=== PATIENT | female | born 1965 | race Caucasian/White ===

== ENCOUNTER → 2016-06-19 | Outpatient (CLI) | payer MEDICAID ==
--- NOTE | 2016-06-19 20:52 | CR ---
EXAM DATE: 06/19/16 PATIENT'S AGE: 51 Patient: KYLE SLADE Facility: [place], [place] Site . Site : 1965 Study: XRay Spine Lumbar [id number] 1:02:59 PM Ordering Physician: Andrea Samuel Final Report: Indication: Low back pain. Technique: Three views of the lumbar spine. Comparison: None. Findings: Six lumbar-type vertebral bodies with the lowest segment presumably representing a lumbarized S1 segment. Moderate to advanced L3-4 disc degeneration and 3 mm L3 retrolisthesis. Moderate L2-3 and L5-S1 disk degeneration also. Slight dextroscoliosis. Sacroiliac joints grossly negative. Impression: 1. Lumbarized S1 segment. 2. Degenerative changes, as above, including a 3 mm L3 retrolisthesis. 3. Slight scoliosis. Dictated by Reji Miramontes MD @ Jun 19 2016 2:46PM (Electronic Signature) Report Signed by Proxy. OSMAR
--- NOTE | 2016-06-19 20:53 | CR ---
EXAM DATE: 06/19/16 PATIENT'S AGE: 51 Patient: KYLE SLADE Facility: [place], [place] Site . Site : 1965 Study: XRay Extremity [id number]/[id number] 1:05:01 PM Ordering Physician: Andrea Samuel Final Report: HISTORY: Right hip pain. Technique: AP pelvis and lateral view right hip. Comparison: No prior. Findings: Degenerative arthrosis of the right hip with severe hip joint space narrowing. There is likely subchondral cystic change involving the femoral head greater than acetabulum. Degenerative subchondral sclerosis is present. On the left, there is also degenerative arthrosis of the hip with moderate to severe hip joint space narrowing superolaterally. Mild pubic symphyseal degenerative changes. There is a transitional lumbosacral vertebral body which appears partially sacralized on the right. There is no acute fracture. Pelvic calcifications are likely phleboliths. Impression: 1. No acute fracture. 2. Degenerative changes of the right greater than left hips. Dictated by Ty Jimenez MD @ Jun 19 2016 2:59PM (Electronic Signature) Report Signed by Proxy. OSMAR
[2016-06-25 14:04] LABS: HPV 16 Not Detected (NOTDET); HPV 18 Not Detected (NOTDET)
== END ==
LOC: MW.CHFP 09:57
PROVIDERS: ATTEND Family Medicine
DX: M54.5 Low back pain (principal); M25.551 Pain in right hip; M41.9 Scoliosis, unspecified
CPT/HCPCS: 72100; 72100-26; 73502-26-RT; 73502-RT; 87624; G0145

== ENCOUNTER → 2016-06-25 | Outpatient (CLI) | payer MEDICAID ==
--- NOTE | 2016-06-25 16:48 | MY ---
EXAMINATION: Bilateral digital mammography utilizing CAD. HISTORY: Screening exam. Comparison is made to previous studies dated 10/08/2010. FINDINGS: Bilateral scattered fibroglandular densities. No suspicious calcifications, masses or architectural distortions. No pathologic appearing lymph nodes, no abnormal skin thickening or nipple inversion. CAD highlighted regions appear normal at this time. IMPRESSION: BI-RADS category I - negative mammogram. Continued screening according to ACR-ACS guidelines keyonna quijano. THE FALSE-NEGATIVE RATE OF MAMMOGRAM IS APPROXIMATELY 10%. MANAGEMENT OF A PALPABLE ABNORMALITY MUST BE BASED UPON CLINICAL GROUNDS. SENSITIVITY FOR DETECTION OF ABNORMALITIES IN DENSE BREASTS IS LOW. NOTE: A letter will be sent to the patient regarding findings. [facility] [place] [phone] - FAX [phone]
== END ==
LOC: MW.MAM 11:02
PROVIDERS: ATTEND Family Medicine
DX: Z00.00 Encounter for general adult medical examination without abnormal findings (principal)
CPT/HCPCS: G0202; G0202-26

== ENCOUNTER → 2016-06-29 | Outpatient (CLI) | payer MEDICAID ==
--- NOTE | 2016-06-30 08:50 | MR ---
EXAMINATION: MRI lumbar spine HISTORY: Right leg weakness COMPARISON: Radiographs dated 06/19/2016 TECHNIQUE: Multiplanar and multisequence images obtained of the lumbar spine without contrast. FINDINGS: The lumbar spinal alignment is normal. The vertebral body heights and disc spaces appear w ell-maintained. Mild endplate signal changes are noted without suspicious bone marrow signal changes . The SI joints are symmetric. The distal spinal cord appears normal and the conus terminates at L1. The visualized retroperitoneal structures appear unremarkable. T12-L1: Unremarkable. L1-L2: There is a moderate diffuse disc bulge with mild facet and ligamentum flavum hypertrophy resu lting in mild spinal canal stenosis. There is mild bilateral neural foraminal stenosis. L2-L3: Moderate to large diffuse disc bulge with mild facet and ligamentum flavum hypertrophy result ing in moderate spinal canal stenosis. Moderate to severe right and severe left neural foraminal bashir nosis. L3-L4: Small diffuse disc bulge with facet and ligamentum flavum hypertrophy resulting in mild spina l canal stenosis. Mild bilateral neural foraminal stenosis. L4-L5: Small diffuse disc bulge asymmetric to the right facet hypertrophy resulting in qazo-gl-elhml ate spinal canal stenosis. Moderate right and mild left neural foraminal stenosis. L5-S1: Grossly unremarkable. IMPRESSION: 1. Multilevel degenerative disc disease noted within the lumbar spine most prominent at L2-L3 with i ndividual details above.
--- NOTE | 2016-07-01 08:30 | MR ---
EXAMINATION: MRI of the right hip HISTORY: Other signs and symptoms COMPARISON: Radiographs dated 06/19/2016 TECHNIQUE: Multiplanar and multisequence images obtained of the pelvis and right hip without contras t. FINDINGS: Severe joint space narrowing is noted within the right hip with a moderate joint effusion. There is mild superior and lateral subluxation within the joint space. There is moderate edema with in the right femoral head and within the right acetabulum. The transverse ligament appears intact. J oint spaces within the left hip are grossly preserved. The SI joints are symmetric. The visualized i ntrapelvic components appear normal. The muscular signal appears normal. No suspicious bone marrow s ignal. IMPRESSION: 1. Advanced osteophytic changes and joint space narrowing within the right hip with an underlying barby int effusion.
== END ==
LOC: MW.MRI 10:44
PROVIDERS: ATTEND Family Medicine
DX: R29.898 Other symptoms and signs involving the musculoskeletal system (principal); M25.751 Osteophyte, right hip; M25.451 Effusion, right hip; M51.26 Other intervertebral disc displacement, lumbar region; M48.06 Spinal stenosis, lumbar region
CPT/HCPCS: 72148; 72148-26; 73721-26-RT; 73721-RT

== ENCOUNTER 2016-07-30 10:58 | Day surgery (SDC) | payer MEDICAID ==
[~2016-07-30 10:58] MED LIST: Lactated Ringers 1,000 ML IV SCH; Sodium Chloride 0.9% 10 ML Syringe FLUSH PRN; Sodium Chloride 0.9% 2.5 ML Syringe FLUSH PRN
[2016-07-30] MEDS ORDERED: fentaNYL 100 MCG/2 ML SDV ONE (11:20)
[2016-07-30] MEDS ORDERED: Midazolam 1 MG/ML 2 ML SDV ONE (11:20)
[2016-07-30] MEDS ORDERED: Propofol 200 MG/20 ML SDV ONE ×2 (11:20→13:12)
--- NOTE | 2016-07-30 11:25 | PCM.PREANE ---
Preanesthetic Assessment - Anesthesia/Transfusion/Family Hx Anesthesia History: Prior Anesthesia Without Reaction Family History of Anesthesia Reaction: No Transfusion History: No Prior Transfusion(s) - Review of Systems General: No Symptoms Pulmonary: No Symptoms Cardiovascular: No Symptoms Gastrointestinal: No symptoms Neurological: No Symptoms Other: Reports: None - Physical Assessment NPO Status Date: 07/29/16 NPO Status Time: 23:00 O2 Sat by Pulse Oximetry: 98 Respiratory Rate: 16 Vital Signs: Last Vital Signs Temp 36.3 C 07/30/16 11:12 Pulse 83 07/30/16 11:12 Resp 16 07/30/16 11:12 BP 111/84 07/30/16 11:12 Pulse Ox 98 07/30/16 11:12 Height: 1.75 m Weight: 86.183 kg ASA Class: 2 Mental Status: Alert & Oriented x3 Airway Class: Mallampati = 2 Dentition: Reports: Normal Dentition Lungs: Clear to auscultation, Normal respiratory effort Cardiovascular: Regular Rate, Regular Rhythm - Allergies Allergies/Adverse Reactions: Allergies Allergy/AdvReac Type Severity Reaction Status Date / Time No Known Allergies Allergy Verified 07/28/16 10:52 - Anesthesia Plan Pre-Op Medication Ordered: None - Acknowledgements Anesthesia Type Planned: MAC Pt an Appropriate Candidate for the Planned Anesthesia: Yes Alternatives and Risks of Anesthesia Discussed w Pt/Guardian: Yes Pt/Guardian Understands and Agrees with Anesthesia Plan: Yes Additional Comments: scoliosis on MRI, but no clinical problems from the scoliosis, Is hep C POSITIVE and has not yet started treatment for it. + smoker. PreAnesthesia Questionnaire Gastrointestinal History: Reports: Hepatitis, Other (See Below) Other Gastrointestinal History: occasional heartburn, currently has hepatitis C Genitourinary History: Reports: None Musculoskeletal History: Reports: Back Pain, Chronic, Osteoarthritis, Other ( See Below) Other Musculoskeletal History: chronic back and hip pain, hx fx foot and finger, Endocrine/Metabolic History: - Past Surgical History Head Surgeries/Procedures: Reports: None HEENT Surgical History: Reports: Myringotomy w Tube(s), Tonsillectomy GI Surgical History: Reports: Cholecystectomy Female Surgical History: Reports: Hysterectomy - SUBSTANCE USE Smoking Status *Q: Current Every Day Smoker Tobacco Use Within Last Twelve Months: Cigarettes Recreational Drug Use History: No - HOME MEDS Home Medications: Home Meds Diclofenac Sodium [Voltaren] 75 mg PO BID 07/28/16 [History] - CURRENT (IN HOUSE) MEDS Current Meds: Current Medications Lactated Ringer's (Ringers, Lactated) 1,000 mls @ 125 mls/hr IV ASDIRECTED THOMAS Last Admin: 07/30/16 11:15 Dose: 125 mls/hr Sodium Chloride (Saline Flush) 10 ml FLUSH ASDIRECTED PRN PRN Reason: Keep Vein Open Sodium Chloride (Saline Flush) 2.5 ml FLUSH ASDIRECTED PRN PRN Reason: Keep Vein Open
--- NOTE | 2016-07-30 13:51 | PCM.POSTAN ---
POST ANESTHESIA ASSESSMENT - MENTAL STATUS Mental Status: alert, oriented - RESPIRATORY Respiratory Status: respiratory rate WNL, airway patent, O2 saturation stable - CARDIOVASCULAR CV Status: pulse rate WNL, blood pressure stable - GASTROINTESTINAL GI Status: no symptoms - POST OP HYDRATION Hydration Status: adequate & stable
--- NOTE | 2016-07-30 14:10 | PCM48HPAN ---
Post Anesthesia Note - EVALUATION WITHIN 48HRS OF ANESTHETIC Vital Signs in Normal Range: Yes Patient Participated in Evaluation: Yes Respiratory Function Stable: Yes Airway Patent: Yes Cardiovascular Function Stable: Yes Hydration Status Stable: Yes Pain Control Satisfactory: Yes Nausea and Vomiting Control Satisfactory: Yes Mental Status Recovered: Yes
[2016-07-30 14:21] VITALS: BP 90/64
--- NOTE | 2016-07-30 14:44 | PCM.OPNOTE ---
- General Post-Op/Procedure Note Date of Surgery/Procedure: 07/30/16 Operative Procedure(s): Colonoscopy Findings: Normal colonoscopy Pre Op Diagnosis: Colonoscopy Post-Op Diagnosis: same Anesthesia Technique: MAC Primary Surgeon: Candelaria Davila Condition: Good Free Text/Narrative:: Intake & Output 07/29/16 07/30/16 07/30/16 22:59 06:59 14:59 Intake Total 975 Balance 975
--- NOTE | 2016-07-30 19:23 | OR ---
SURGEON: LUIS HINES MD DATE OF PROCEDURE: 07/30/2016 PREOPERATIVE DIAGNOSIS: Screening colonoscopy. POSTOPERATIVE DIAGNOSIS: Screening colonoscopy. PROCEDURE PERFORMED: Screening colonoscopy. INSTRUMENT USED: Olympus colonoscope. ANESTHESIA: MAC. EXTENT OF EXAM: To the cecum. PREPARATION: Fair. LIMITATIONS: None. INDICATIONS FOR EXAMINATION: The patient is a 51-year-old female, who presents for screening colonoscopy. We discussed the procedure as well as expected perioperative course. We discussed the risks, including bleeding, infection, or damage to surrounding structures, including perforation. The patient verbalized understanding and wished to proceed. PROCEDURE IN DETAIL: The patient was brought into the endoscopy suite and placed in the left lateral decubitus position. A time-out was completed verifying the patient's name, age, date of , allergies, and procedure to be performed. Monitored anesthesia care was induced and continuous oxygen was provided via nasal cannula throughout the procedure. After adequate sedation was achieved, a digital rectal exam was performed. This examination was within normal limits. A well lubricated colonoscope was inserted in the rectum and advanced under direct visualization to the level of the cecum. The cecum was identified by both visual and anatomic landmarks. A photograph was taken of the cecal cap. I was unable to retroflex the scope due to significant looping of the scope more proximally. The scope was then fully withdrawn while examining the color, texture, anatomy, and integrity of the mucosa from the cecum to the anal canal. The findings were consistent with normal colonic mucosa. The scope was then brought into the rectum and retroflexed to allow visualization of the anal canal opening. This appeared normal and a photograph was taken. The scope was straightened out and removed from the patient. Cecum to anus time was 9 minutes. The patient was transferred to the recovery room in stable condition. ENDOSCOPIC DIAGNOSIS: Normal colonoscopy. RECOMMENDATION: Follow up in clinic in 10 years. RAPHAEL / CHUCKY /[id number]
== END 2016-07-30 14:20 | disposition home or self-care (01) ==
LOC: MW.SDS 10:58
PROVIDERS: ATTEND Surgery
DX: Z12.11 Encounter for screening for malignant neoplasm of colon (principal); E66.9 Obesity, unspecified; Z72.0 Tobacco use; Z79.899 Other long term (current) drug therapy; Z90.49 Acquired absence of other specified parts of digestive tract; Z90.710 Acquired absence of both cervix and uterus; Z98.890 Other specified postprocedural states; F17.210 Nicotine dependence, cigarettes, uncomplicated
CPT/HCPCS: 45378; J2250; J3010; J7120; J2704

== ENCOUNTER 2017-09-28 16:35 | Emergency (ER) | payer MEDICAID ==
--- NOTE | 2017-09-28 16:44 | EDM.PDOC ---
ED HPI GENERAL MEDICAL PROBLEM - General Chief Complaint: Upper Extremity Injury/Pain Stated Complaint: A RING STUCK ON FINGER Time Seen by Provider: 09/28/17 16:36 Source of Information: Reports: Patient History Limitations: Reports: No Limitations - History of Present Illness INITIAL COMMENTS - FREE TEXT/NARRATIVE: HISTORY AND PHYSICAL: History of present illness: Agent is a 52-year-old female who presents to the emergency room with concerns of her ring being stuck on her finger. She states this morning she felt like she had some swelling to her fingers and had tried taking her titanium ring off of the left index finger. She was unsuccessful. Presented to the emergency room after multiple attempts at home. Denies any injury or trauma to the affected digit. Review of systems: As per history of present illness and below otherwise all systems reviewed and negative. Past medical history: As per history of present illness and as reviewed below otherwise noncontributory. Surgical history: As per history of present illness and as reviewed below otherwise noncontributory. Social history: No reported history of drug or alcohol abuse. Family history: As per history of present illness and as reviewed below otherwise noncontributory. Physical exam: General: Well-developed and well-nourished 52-year-old female. Alert and oriented. Nontoxic appearing and in no acute distress. HEENT: Atraumatic, normocephalic, pupils equal and reactive bilaterally, negative for conjunctival pallor or scleral icterus, mucous membranes moist, throat clear, neck supple, nontender, trachea midline. No drooling or trismus noted. No meningeal signs Lungs: Clear to auscultation, breath sounds equal bilaterally, chest nontender. Heart: S1S2, regular rate and rhythm without overt murmur Abdomen: Soft, nondistended, nontender. Negative for masses or hepatosplenomegaly. Negative for costovertebral tenderness. Pelvis: Stable nontender. Genitourinary: Deferred. Rectal: Deferred. Skin: Intact, warm, dry. No lesions or rashes noted. Extremities: Soft tissue swelling at the left index finger above the ring, negative for cords or calf pain. Neurovascular unremarkable. Neuro: Awake, alert, oriented. Cranial nerves II through XII unremarkable. Cerebellum unremarkable. Motor and sensory unremarkable throughout. Exam nonfocal. Notes: Ring cutter was used to gently remove the ring from the left index finger. Patient states that it "feels much better". He declines a need for x-ray at this time. Skin is intact. Patient states she has no other further concerns or requests at this time. Discharged home with supportive care measures. Denies any further questions or concerns. Diagnostics: None Therapeutics: Declines Prescription: None Impression: Finger swelling (Ring stuck on finger) Plan: 1. Rest, ice and elevated the affected hand 2. Tylenol and/or ibuprofen as needed for pain. 3. Follow-up with your primary care provider as needed. Return to the ED as needed and as discussed. Definitive disposition and diagnosis as appropriate pending reevaluation and review of above. - Related Data Allergies Allergy/AdvReac Type Severity Reaction Status Date / Time No Known Allergies Allergy Verified 09/28/17 16:36 Home Meds: Home Meds . [No Known Home Meds] 09/28/17 [History] Past Medical History HEENT History: Reports: Other (See Below) Other HEENT History: has upper partial removable denture Cardiovascular History: Reports: None Respiratory History: Reports: None Gastrointestinal History: Reports: Hepatitis Other Gastrointestinal History: hx of hepatitis C Genitourinary History: Reports: None [employer] History: Reports: None Musculoskeletal History: Reports: Arthritis, Fracture Other Musculoskeletal History: hx of fx shoulder and ankle- no hardware Neurological History: Reports: None Psychiatric History: Reports: None Endocrine/Metabolic History: Reports: None Hematologic History: Reports: None Immunologic History: Reports: None Oncologic (Cancer) History: Reports: None Dermatologic History: Reports: None - Past Surgical History Head Surgeries/Procedures: Reports: None HEENT Surgical History: Reports: Adenoidectomy, Myringotomy w Tube(s), Tonsillectomy Cardiovascular Surgical History: Reports: None Respiratory Surgical History: Reports: None GI Surgical History: Reports: Cholecystectomy, Colonoscopy Female Surgical History: Reports: Hysterectomy Endocrine Surgical History: Reports: None Neurological Surgical History: Reports: None Musculoskeletal Surgical History: Reports: None Oncologic Surgical History: Reports: None Dermatological Surgical History: Reports: None Social & Family History - Family History Family Medical History: Noncontributory - Tobacco Use Smoking Status *Q: Current Every Day Smoker Years of Tobacco use: 30 Packs/Tins Daily: 0.3 - Caffeine Use Caffeine Use: Reports: None - Recreational Drug Use Recreational Drug Use: No Review of Systems - Review of Systems Review Of Systems: ROS reveals no pertinent complaints other than HPI. ED EXAM, GENERAL - Physical Exam Exam: See Below (See dictation) Course - Vital Signs Last Recorded V/S: Last Vital Signs Temp 96.8 F 09/28/17 16:36 Pulse 98 09/28/17 16:36 Resp 18 09/28/17 16:36 BP 140/81 09/28/17 16:36 Pulse Ox 98 09/28/17 16:36 Departure - Departure Time of Disposition: 16:52 Disposition: Home, Self-Care 01 Clinical Impression: Finger swelling - Discharge Information Instructions: Medical Screening Exam Referrals: PCP,None [Primary Care Provider] - Forms: ED Department Discharge Additional Instructions: The following information is given to patients seen in the emergency department who are being discharged to home. This information is to outline your options for follow-up care. We provide all patients seen in our emergency department with a follow-up referral. The need for follow-up, as well as the timing and circumstances, are variable depending upon the specifics of your emergency department visit. If you don't have a primary care physician on staff, we will provide you with a referral. We always advise you to contact your personal physician following an emergency department visit to inform them of the circumstance of the visit and for follow-up with them and/or the need for any referrals to a consulting specialist. The emergency department will also refer you to a specialist when appropriate. This referral assures that you have the opportunity for follow-up care with a specialist. All of these measure are taken in an effort to provide you with optimal care, which includes your follow-up. Under all circumstances we always encourage you to contact your private physician who remains a resource for coordinating your care. When calling for follow-up care, please make the office aware that this follow-up is from your recent emergency room visit. If for any reason you are refused follow-up, please contact the [facility] Emergency Department at and asked to speak to the emergency department charge nurse. [facility] [address] [place] [id number] 1. Rest, ice and elevated the affected hand 2. Tylenol and/or ibuprofen as needed for pain. 3. Follow-up with your primary care provider as needed. Return to the ED as needed and as discussed.
[2017-09-28 17:00] VITALS: BP 136/70
== END 2017-09-28 16:55 | disposition home or self-care (01) ==
LOC: MW.ED 16:35
DX: S60.451A Superficial foreign body of left index finger, initial encounter (principal); M79.89 Other specified soft tissue disorders; X58.XXXA Exposure to other specified factors, initial encounter
CPT/HCPCS: 99282; 99283